=== PATIENT | female | born 1995 | race Two or more races ===

== ENCOUNTER 2019-06-26 11:24 | Emergency (ER) | payer OTHER ==
[~2019-06-26] VITALS: Ht 170.2 cm; Wt 70.8 kg
--- NOTE | 2019-06-26 11:35 | NUR ---
PT BIB [facility] FROM HOME C/O RIGHT KNEE PAIN. PATIENT STATES THAT SHE HAD DISLOCATED HER KNEE WHERE HER PATELLA SHIFTED TO THE RIGHT WHEN SLAMMED BY THE REFRIDGERATOR DOOR. PT STATES HER RLE TURNED BLUE AND POPPED BACK IN AFTER 15 MINUTES. AAOX4. BILATERAL PEDAL PULSES STRONG AND NORMAL. SKIN COLOR BACK TO BASELINE. WILL CONTINUE TO MONITOR.
[2019-06-26 13:52] VITALS: BP 112/71
--- NOTE | 2019-06-26 13:52 | NUR ---
Patient discharged to home in stable condition. Written and verbal after care instructions given. Patient verbalizes understanding of instruction.
== END 2019-06-26 13:53 | disposition home or self-care (01) ==
LOC: ER 11:25
DX: S83.014A Lateral dislocation of right patella, initial encounter (principal); W22.8XXA Striking against or struck by other objects, initial encounter; Y93.89 Activity, other specified; Y92.89 Other specified places as the place of occurrence of the external cause; Y99.8 Other external cause status
CPT/HCPCS: 73564-TC